=== PATIENT | female | born 1970 | race Caucasian/White ===

== ENCOUNTER → 2016-04-13 | Outpatient (CLI) | payer BC | LOC: MAMMO 15:49 | DX: T38.1X5 Adverse effect of thyroid hormones and substitutes (principal); Z12.31 Encounter for screening mammogram for malignant neoplasm of breast; E04.1 Nontoxic single thyroid nodule | CPT/HCPCS: G0202 ==

== ENCOUNTER → 2016-05-06 | Outpatient (CLI) | payer BC | LOC: RAD 13:08 | DX: R42 Dizziness and giddiness (principal) ==

== ENCOUNTER → 2017-06-29 | Outpatient (CLI) | payer BC | LOC: MAMMO 10:45 → RAD 10:45 → MAMMO 10:47 | DX: Z12.31 Encounter for screening mammogram for malignant neoplasm of breast (principal) ==

== ENCOUNTER → 2019-01-12 | Outpatient (CLI) | payer BC | LOC: RAD 17:20 | DX: S62.664A Nondisplaced fracture of distal phalanx of right ring finger, initial encounter for closed fracture (principal) ==

== ENCOUNTER 2019-11-02 13:00 | Outpatient (RCR) | payer BC | END 2019-11-02 13:30 | disposition still patient (30) | LOC: PT 13:00 | DX: M25.511 Pain in right shoulder (principal); G89.29 Other chronic pain ==

== ENCOUNTER → 2020-09-01 | Day surgery (SDC) | payer BC | END | disposition home or self-care (01) | LOC: MSO 07:34 | DX: Z12.11 Encounter for screening for malignant neoplasm of colon (principal); E07.9 Disorder of thyroid, unspecified; F32.9 Major depressive disorder, single episode, unspecified; E66.01 Morbid (severe) obesity due to excess calories; Z79.899 Other long term (current) drug therapy | CPT/HCPCS: 00812; J2704; J3010; J7120 ==